=== PATIENT | female | born 1995 | race Caucasian/White ===

== ENCOUNTER 2018-10-04 12:22 | Inpatient (IN) | payer OTHER ==
[~2018-10-04] VITALS: Ht 167.6 cm; Wt 62.9 kg
[~2018-10-04 12:22] MED LIST: DOCU-144 PO; IBUP-1541 PO
[2018-10-04] MEDS ORDERED: FAMOTIDINE 20 MG INJ IV STA (12:55)
[2018-10-04] MEDS ORDERED: ONDANSETRON 4 MG INJ IV STA (12:55)
[2018-10-04] MEDS ORDERED: SOD CHLORIDE 0.9% 1,000 ML IV STA (12:55)
[2018-10-04] MEDS ORDERED: LORAZEPAM 2 MG INJ IV ONE (13:00)
[2018-10-04] MEDS ORDERED: ACETYLCYSTEINE INJ 9,000 MG in DEXTROSE 5% 200 ML IV STA (13:53)
[2018-10-04] MEDS ORDERED: ACETYLCYSTEINE INJ 3,000 MG in DEXTROSE 5% 500 ML IV SCH (14:00)
[2018-10-04] MEDS ORDERED: POTASSIUM CHLORIDE (SR) 20 MEQ TAB PO STA (14:04)
--- NOTE | 2018-10-04 14:08 | ERD ---
ER Documentation Chief Complaint Chief Complaint lower back pain, frequency discomfort with urination HPI 23-year-old female presents with some pelvic pain and nausea and urinary frequency. This is been over the last day after alcohol binge. She states that she has responded drinking alcohol to excess and denies chronic alcohol abuse although she states she has had several pints records of both hard liquor and beer over the last 1 to 2 weeks. Denies . She denies fevers, upper abdominal pain, cough, shortness of breath or chest pain. Patient was having nausea and lower abdominal pain and was taken approximately 12 Midol or acetaminophen since 1 PM this morning. Patient states she takes Midol regularly and she was taking for pain. She denies any suicidal thoughts or ideation. Denies other drugs. She describes her lower abdominal pain as 0 out of 10 in triage, right equal to left bilaterally and in the lower abdominal area. She complains of urinary frequency but no dysuria, discharge or bleeding. ROS All systems reviewed and are negative except as per history of present illness. Medications Home Meds No Active Prescriptions or Reported Meds Allergies Allergies: Coded Allergies: No Known Allergy (Unverified , 10/04/18) PMhx/Soc Medical and Surgical Hx: pt denies Medical Hx, pt denies Surgical Hx Hx Alcohol Use: No Hx Substance Use: No Hx Tobacco Use: No Smoking Status: Never smoker FmHx Family History: No diabetes, No coronary disease, No other Physical Exam Vitals Vital Signs Date Temp Pulse Resp B/P (MAP) Pulse Ox O2 O2 Flow FiO2 Time Delivery Rate 10/04/18 92 17 106/67 98 Room Air 15:17 (80) 10/04/18 98.9 101 20 131/68 96 12:24 (89) Physical Exam Const: No acute distress Head: Atraumatic Eyes: Normal Conjunctiva ENT: Normal External Ears, Nose and Mouth. Neck: Full range of motion. No meningismus. Resp: Clear to auscultation bilaterally Cardio: Regular rate and rhythm, no murmurs Abd: Soft, non tender, non distended. Normal bowel sounds Skin: No petechiae or rashes Back: No midline or flank tenderness Ext: No cyanosis, or edema Neur: Awake and alert Psych: Normal Mood and Affect Result Diagram: 10/04/18 1304 10/04/18 1303 Results 24 hrs Laboratory Tests Test 10/04/18 13:03 10/04/18 13:04 10/04/18 13:11 Sodium Level 139 mmol/L Potassium Level 3.2 mmol/L Chloride Level 105 mmol/L Carbon Dioxide Level 22 mmol/L Anion Gap 12 Blood Urea Nitrogen 12 mg/dl Creatinine 0.67 mg/dl Est Glomerular Filtrat > 60 mL/min Rate mL/min Glucose Level 123 mg/dl Calcium Level 9.6 mg/dl Total Bilirubin 0.7 mg/dl Direct Bilirubin 0.00 mg/dl Indirect Bilirubin 0.7 mg/dl Aspartate Amino Transf (AST/SGOT) 22 IU/L Alanine 15 IU/L Aminotransferase (ALT/SGPT) Alkaline Phosphatase 73 IU/L Total Protein 7.6 g/dl Albumin 4.5 g/dl Globulin 3.10 g/dl Albumin/Globulin Ratio 1.45 Lipase 74 U/L Acetaminophen Level 44.0 ug/ml White Blood Count 8.9 10^3/ul Red Blood Count 4.53 10^6/ul Hemoglobin 13.6 g/dl Hematocrit 40.6 % Mean Corpuscular Volume 89.6 fl Mean Corpuscular Hemoglobin 30.0 pg Mean Corpuscular 33.5 g/dl Hemoglobin Concent Red Cell Distribution Width 11.9 % Platelet Count 293 10^3/UL Mean Platelet Volume 10.1 fl Immature Granulocytes % 0.600 % Neutrophils % 75.6 % Lymphocytes % 18.1 % Monocytes % 5.4 % Eosinophils % 0.0 % Basophils % 0.3 % Nucleated Red Blood Cells % 0.0 /100WBC Immature Granulocytes # 0.050 10^3/ul Neutrophils # 6.7 10^3/ul Lymphocytes # 1.6 10^3/ul Monocytes # 0.5 10^3/ul Eosinophils # 0.0 10^3/ul Basophils # 0.0 10^3/ul Nucleated Red Blood Cells # 0.0 10^3/ul Prothrombin Time 13.3 Sec Prothrombin Time Ratio 1.0 INR International 1.00 Normalized Ratio Activated Partial Thromboplast 32.2 Sec Time Urine Color ELHAM Urine Clarity CLEAR Urine pH 6.0 Urine Specific [place] 1.017 Urine Ketones NEGATIVE mg/dL Urine Nitrite POSITIVE mg/dL Urine Bilirubin NEGATIVE mg/dL Urine Urobilinogen NEGATIVE mg/dL Urine Leukocyte Esterase NEGATIVE Ariana/ul Urine Microscopic RBC 3 /HPF Urine Microscopic WBC 4 /HPF Urine Squamous Epithelial Cells FEW /HPF Urine Hemoglobin NEGATIVE mg/dL Urine Glucose NEGATIVE mg/dL Urine Total Protein NEGATIVE mg/dl POC Beta HCG, Qualitative NEGATIVE Current Medications Medications Dose Sig/Gómze Start Time Status Last (Trade) Ordered Route PRN Stop Time Admin Dose Reason Admin Sodium 1,000 ml @ Q1H STAT 10/04/18 DC 10/04/18 Chloride 1,000 mls/hr IV 12:55 13:13 10/04/18 13:54 Ondansetron 4 mg ONCE STAT 10/04/18 DC 10/04/18 HCl (Zofran IV 12:55 13:12 Inj) 10/04/18 12:57 Famotidine 20 mg ONCE STAT 10/04/18 DC 10/04/18 (Pepcid Iv) IV 12:55 13:12 10/04/18 12:57 Lorazepam 1 mg ONCE ONCE 10/04/18 DC 10/04/18 (Ativan) IV 13:00 13:12 10/04/18 13:01 245 ml @ ONCE STAT 10/04/18 DC 10/04/18 Acetylcystein 200 mls/hr IV 13:53 15:06 e 9000 10/04/18 15:06 mg/Dextrose 515 ml @ ONCE IV 10/04/18 Acetylcystein 125 mls/hr 14:00 e 3000 10/04/18 17:59 mg/Dextrose 1,030 ml @ ONCE IV 10/04/18 Acetylcystein 62.5 mls/hr 20:00 e 6000 10/05/18 19:59 mg/Dextrose Potassium 40 meq ONCE STAT 10/04/18 DC 10/04/18 Chloride PO 14:04 14:48 (Klor-Con 20) 10/04/18 14:12 Cephalexin 500 mg ONCE ONCE 10/04/18 DC 10/04/18 (Keflex) PO 14:30 14:48 10/04/18 14:31 Ondansetron 4 mg ER BRIDGE 10/04/18 HCl (Zofran PRN IV 15:00 Inj) NAUSEA/VOMITI 10/05/18 14:59 NG 650 mg ER BRIDGE 10/04/18 Acetaminophen PRN PO 15:00 (Tylenol .MILD PAIN 10/05/18 14:59 Tab) 1-3 OR TEMP Procedures/MDM Patient presents with nausea and lower abdominal pain after alcohol binge over the last 1 to 2 weeks. She describes an unintentional overdose of Tylenol. Acetaminophen level was 44 approximately 13 hours after initial ingestion which would qualify for N-acetylcysteine per nomogram.. Patient was given 1 L normal saline IV, Zofran 4 mill grams IV. Urine shows nitrites and white blood cells with few epithelial cells. Patient was given Keflex 500 mg by mouth for findings suggestive of UTI. hCG negative. Patient has no evidence of transaminitis. Patient has potassium 3.2 and was given 40 mEq of potassium. Patient alert, talkative [id number] with a benign abdomen on serial exam and throughout the ED course. Patient currently shows no signs or symptoms of leukocytosis, rebound, and abdominal exam is reassuring. Departure Diagnosis: Primary Impression: Unintentional Tylenol overdose Additional Impressions: Cystitis Hypokalemia Alcohol abuse Condition: Serious CHI MOLINA MD Oct 04, 2018 14:08
[2018-10-04] MEDS ORDERED: CEPHALEXIN 500 MG CAP PO ONE (14:30)
[2018-10-04] MEDS ORDERED: ONDANSETRON 4 MG INJ IV PRN (15:00)
[2018-10-04] MEDS ORDERED: ACETAMINOPHEN 325 MG TAB PO PRN (15:00)
--- NOTE | 2018-10-04 16:47 | CONS ---
Assessment/Plan Assessment/Plan Assessment/Plan (Daily) Impression: 1. Unintentional Tylenol overdose 2. alcohol abuse Recommendations: 1. agree with stat acetylcysteine protocol for tylenol toxicity 2. alcohol cessation counseled 3. monitor daily INR and LFT 4. Dr. Morel to take over GI care for this patient tomorrow. Consultation Date/Type/Reason Admit Date/Time Date of Consultation: Oct 04, 2018 Type of Consult GI Reason for Consultation tylenol and alcohol toxicity Date/Time of Note DATE: 10/04/18 TIME: 16:42 Hx of Present Illness 23-year-old female who is admitted for likely tylenol toxicity. She presents with some pelvic pain and nausea and urinary frequency. This is been over the last day after alcohol binge for the last 2 wks. She states that she has responded drinking alcohol to excess as she goes out with her friends every night and having at least 5 alcohol beverages each setting. She denies fevers, upper abdominal pain, cough, shortness of breath or chest pain. Patient was having nausea and lower abdominal pain and was taken approximately 12 Midol or acetaminophen since 1 PM this morning. Patient states she takes Midol regularly and she was taking for pain. She denies any suicidal thoughts or ideation. Denies other drugs. No encephalopathy, no h/o jaundice, no known risk exposure to viral hepatitis. all point ros administered, pertinent positives and negative in HPI otherwise negative. Past Medical History Medical History: no pertinent history Home Meds No Active Prescriptions or Reported Meds Medications Current Medications Acetylcysteine 3000 mg/Dextrose 515 ml @ 125 mls/hr ONCE IV Last administered on 10/04/18at 16:10; Admin Dose 125 MLS/HR; Start 10/04/18 at 14:00; Stop 10/04/18 at 17:59 Acetylcysteine 6000 mg/Dextrose 1,030 ml @ 62.5 mls/hr ONCE IV ; Start 10/04/18 at 20:00; Stop 10/05/18 at 19:59 Ondansetron HCl (Zofran Inj) 4 mg ER BRIDGE PRN IV NAUSEA/VOMITING; Start 10/04/18 at 15:00; Stop 10/05/18 at 14:59 Acetaminophen (Tylenol Tab) 650 mg ER BRIDGE PRN PO .MILD PAIN 1-3 OR TEMP; Start 10/04/18 at 15:00; Stop 10/05/18 at 14:59 Sodium Chloride 1,000 ml @ 75 mls/hr [id number] IV ; Start 10/04/18 at 16:30 Levofloxacin/ Dextrose 100 ml @ 100 mls/hr Q24H IVPB ; Start 10/04/18 at 16:30 Pantoprazole (Protonix Tab) 40 mg DAILY PO ; Start 10/05/18 at 09:00 Allergies: Coded Allergies: No Known Allergy (Unverified , 10/04/18) Past Surgical History Past Surgical Hx: no surgical history Family History Significant Family History: no pertinent family hx Social History Alcohol Use: heavy Smoking Status: Never smoker Drug Use: none Exam/Review of Systems Exam Vitals Vital Signs Date Temp Pulse Resp B/P (MAP) Pulse Ox O2 O2 Flow FiO2 Time Delivery Rate 10/04/18 92 17 106/67 98 Room Air 15:17 (80) 10/04/18 98.9 12:24 Constitutional: alert, oriented, well developed Psych: no complaints, nl mood/affect Head: normocephalic, atraumatic Eyes: nl conjunctiva, EOMI, nl lids ENMT: nl external ears & nose, nl lips & teeth, nl nasal mucosa & septum Neck: supple, non-tender Respiratory: clear to auscultation, normal air movement Cardiovascular: regular rate and rhythm Gastrointestinal: soft, non-tender, bowel sounds Musculoskeletal: nl extremities to inspection Neurological: PULPING MACHINE OPERATOR II-XII intact, nl mental status, nl speech Results Result Diagram: 10/04/18 1304 10/04/18 1303 Results 24hrs Laboratory Tests Test 10/04/18 13:03 10/04/18 13:04 10/04/18 13:11 Sodium Level 139 Potassium Level 3.2 L Chloride Level 105 Carbon Dioxide Level 22 Anion Gap 12 Blood Urea Nitrogen 12 Creatinine 0.67 Est Glomerular Filtrat Rate mL/min > 60 Glucose Level 123 Calcium Level 9.6 Total Bilirubin 0.7 Direct Bilirubin 0.00 Indirect Bilirubin 0.7 Aspartate Amino Transf (AST/SGOT) 22 Alanine Aminotransferase (ALT/SGPT) 15 Alkaline Phosphatase 73 Total Protein 7.6 Albumin 4.5 Globulin 3.10 Albumin/Globulin Ratio 1.45 Lipase 74 Acetaminophen Level 44.0 H White Blood Count 8.9 Red Blood Count 4.53 Hemoglobin 13.6 Hematocrit 40.6 Mean Corpuscular Volume 89.6 Mean Corpuscular Hemoglobin 30.0 Mean Corpuscular Hemoglobin Concent 33.5 Red Cell Distribution Width 11.9 Platelet Count 293 Mean Platelet Volume 10.1 Immature Granulocytes % 0.600 H Neutrophils % 75.6 Lymphocytes % 18.1 Monocytes % 5.4 Eosinophils % 0.0 Basophils % 0.3 Nucleated Red Blood Cells % 0.0 Immature Granulocytes # 0.050 H Neutrophils # 6.7 Lymphocytes # 1.6 Monocytes # 0.5 Eosinophils # 0.0 Basophils # 0.0 Nucleated Red Blood Cells # 0.0 Prothrombin Time 13.3 Prothrombin Time Ratio 1.0 INR International Normalized Ratio 1.00 Activated Partial Thromboplast Time 32.2 Urine Color ELHAM Urine Clarity CLEAR Urine pH 6.0 Urine Specific [place] 1.017 Urine Ketones NEGATIVE Urine Nitrite POSITIVE A Urine Bilirubin NEGATIVE Urine Urobilinogen NEGATIVE Urine Leukocyte Esterase NEGATIVE Urine Microscopic RBC 3 Urine Microscopic WBC 4 Urine Squamous Epithelial Cells FEW Urine Hemoglobin NEGATIVE Urine Glucose NEGATIVE Urine Total Protein NEGATIVE POC Beta HCG, Qualitative NEGATIVE Medications Medication Current Medications Acetylcysteine 3000 mg/Dextrose 515 ml @ 125 mls/hr ONCE IV Last administered on 10/04/18at 16:10; Admin Dose 125 MLS/HR; Start 10/04/18 at 14:00; Stop 10/04/18 at 17:59 Acetylcysteine 6000 mg/Dextrose 1,030 ml @ 62.5 mls/hr ONCE IV ; Start 10/04/18 at 20:00; Stop 10/05/18 at 19:59 Ondansetron HCl (Zofran Inj) 4 mg ER BRIDGE PRN IV NAUSEA/VOMITING; Start 10/04/18 at 15:00; Stop 10/05/18 at 14:59 Acetaminophen (Tylenol Tab) 650 mg ER BRIDGE PRN PO .MILD PAIN 1-3 OR TEMP; Start 10/04/18 at 15:00; Stop 10/05/18 at 14:59 Sodium Chloride 1,000 ml @ 75 mls/hr [id number] IV ; Start 10/04/18 at 16:30 Levofloxacin/ Dextrose 100 ml @ 100 mls/hr Q24H IVPB ; Start 10/04/18 at 16:30 Pantoprazole (Protonix Tab) 40 mg DAILY PO ; Start 10/05/18 at 09:00 MAUREEN DE LA TORRE MD Oct 04, 2018 16:47
--- NOTE | 2018-10-04 16:55 | HP ---
MARY BAINS NP 10/04/18 1655: Date/Time of Note Date/Time of Note DATE: 10/04/18 TIME: 16:47 Assessment/Plan VTE Prophylaxis SCD contraindicated: low risk/ambulating Pharmacological prophylaxis: NA/contraindicated Pharm contraindication: low risk/ambulating Lines/Catheters IV Catheter Type (from Nrsg): Saline Lock Assessment/Plan Hospital Course 1. Acute acetaminophen toxicity. Pt took yesterday 10 tabs of Midol to decrease pain in left flank. Level is 44. 2. Flank pain for a week on and off. Possible pyelonephritis. US renal ordered 3. UTI, UA is shown pos. nitrite 4. history of ulcer in stomach, incomplete data 5. history of cardiology problem when was 6. Hx of rheumatic disease mother 7. Hypokalemia Assessment/Plan -Mucomyst treatment for tylenol level 44 -start IV fluids -telemetry service -dr Morel, GI to see -GI proph. protonix -DVT proph. SCD bilaterally -renal US -K supplement is given -H. pylori AG -urine culture -start IV Levaquin -level Tylenol per protocol Result Diagram: 10/04/18 1304 10/04/18 1303 Results 24hrs Laboratory Tests Test 10/04/18 13:03 10/04/18 13:04 10/04/18 13:11 Sodium Level 139 Potassium Level 3.2 L Chloride Level 105 Carbon Dioxide Level 22 Anion Gap 12 Blood Urea Nitrogen 12 Creatinine 0.67 Est Glomerular Filtrat Rate mL/min > 60 Glucose Level 123 Calcium Level 9.6 Total Bilirubin 0.7 Direct Bilirubin 0.00 Indirect Bilirubin 0.7 Aspartate Amino Transf (AST/SGOT) 22 Alanine Aminotransferase (ALT/SGPT) 15 Alkaline Phosphatase 73 Total Protein 7.6 Albumin 4.5 Globulin 3.10 Albumin/Globulin Ratio 1.45 Lipase 74 Acetaminophen Level 44.0 H White Blood Count 8.9 Red Blood Count 4.53 Hemoglobin 13.6 Hematocrit 40.6 Mean Corpuscular Volume 89.6 Mean Corpuscular Hemoglobin 30.0 Mean Corpuscular Hemoglobin Concent 33.5 Red Cell Distribution Width 11.9 Platelet Count 293 Mean Platelet Volume 10.1 Immature Granulocytes % 0.600 H Neutrophils % 75.6 Lymphocytes % 18.1 Monocytes % 5.4 Eosinophils % 0.0 Basophils % 0.3 Nucleated Red Blood Cells % 0.0 Immature Granulocytes # 0.050 H Neutrophils # 6.7 Lymphocytes # 1.6 Monocytes # 0.5 Eosinophils # 0.0 Basophils # 0.0 Nucleated Red Blood Cells # 0.0 Prothrombin Time 13.3 Prothrombin Time Ratio 1.0 INR International Normalized Ratio 1.00 Activated Partial Thromboplast Time 32.2 Urine Color ELHAM Urine Clarity CLEAR Urine pH 6.0 Urine Specific [place] 1.017 Urine Ketones NEGATIVE Urine Nitrite POSITIVE A Urine Bilirubin NEGATIVE Urine Urobilinogen NEGATIVE Urine Leukocyte Esterase NEGATIVE Urine Microscopic RBC 3 Urine Microscopic WBC 4 Urine Squamous Epithelial Cells FEW Urine Hemoglobin NEGATIVE Urine Glucose NEGATIVE Urine Total Protein NEGATIVE POC Beta HCG, Qualitative NEGATIVE HPI/ROS Admit Date/Time Admit Date/Time Hx of Present Illness This 23-year-old female presented to ER with left flank pain, nausea and urinary frequency. This pain is on and of for a week. pt report that she is often hold the urination and does not drink much water. She denies fevers, upper abdominal pain, cough, shortness of breath or chest pain. Patient was taken approximately 10-12 Midol or acetaminophen tablet (unknown dose) until now. Patient states she takes Midol regularly and she was taking for pain. She denies any suicidal thoughts or ideation. Surgical hx: medical Social hx : single , lives with parents ROS Constitutional: No fever, cough or chills. EYE: No eye disease. No visual problems. CARDIOVASCULAR: No chest pain. No tachycardia. No Palpitation. when she was born she was under care of cardiology, other details are unknown RESPIRATORY: No breathing problems. No COPD or disease of respiration. GASTROINTESTINAL: Some Nausea. No Vomiting. No constipation. . left flank pain on and off last week Endocrine: No excessive thirst, No polyuria, No hot intolerance. No cold intole simone. MUSCULO-SKELETAL: No bone or Joint disease. NEUROLOGICAL: Alert oriented in person, place, time and situation. No Headache, Confusion. No Seizures. No problem with balance. PMH/Family/Social Past Medical History Medical History: no pertinent history Medications Current Medications Acetylcysteine 3000 mg/Dextrose 515 ml @ 125 mls/hr ONCE IV Last administered on 10/04/18at 16:10; Admin Dose 125 MLS/HR; Start 10/04/18 at 14:00; Stop 10/04/18 at 17:59 Acetylcysteine 6000 mg/Dextrose 1,030 ml @ 62.5 mls/hr ONCE IV ; Start 10/04/18 at 20:00; Stop 10/05/18 at 19:59 Ondansetron HCl (Zofran Inj) 4 mg ER BRIDGE PRN IV NAUSEA/VOMITING; Start 10/04/18 at 15:00; Stop 10/05/18 at 14:59 Acetaminophen (Tylenol Tab) 650 mg ER BRIDGE PRN PO .MILD PAIN 1-3 OR TEMP; Start 10/04/18 at 15:00; Stop 10/05/18 at 14:59 Sodium Chloride 1,000 ml @ 75 mls/hr [id number] IV ; Start 10/04/18 at 16:30 Levofloxacin/ Dextrose 100 ml @ 100 mls/hr Q24H IVPB ; Start 10/04/18 at 16:30 Pantoprazole (Protonix Tab) 40 mg DAILY PO ; Start 10/05/18 at 09:00 Coded Allergies: No Known Allergy (Unverified , 10/04/18) Past Surgical History Past Surgical Hx: no surgical history Family History Significant Family History: no pertinent family hx, cancer (father), diabetes, hypertension (mother), other (rheumatic disease mother) Social History Alcohol Use: none Smoking Status: Never smoker Drug Use: none Exam/Review of Systems Vital Signs Vitals Vital Signs Date Temp Pulse Resp B/P (MAP) Pulse Ox O2 O2 Flow FiO2 Time Delivery Rate 10/04/18 92 17 106/67 98 Room Air 15:17 (80) 10/04/18 98.9 12:24 Exam Exam No acute distress, in ER. Eyes: anicteric, EOM's intact, no pallor Nose: no rhinorrhea Neck: supple, no thyromegaly, no carotid bruits Lungs: clear bilaterally, decreased. CVS: regular rate and rhythm, no murmurs Abdomen: soft, bowel sounds present, no hepatosplenomegally, no masses, no rebound or guarding. : pos CVA bilaterally tenderness more left Rectal: differed. External genitalia: no lesions. Extremities: no edema, DP pulses are palpable Neuro: alert and oriented x 3 Gait: normal Motor strength: 5+/5+ Sensory exam: normal Deep tendon reflexes: normal, Babisky reflexes are absent bilaterally Skin: no lesions JM YANG MD 10/04/18 1754: Assessment/Plan Assessment/Plan Assessment/Plan pt seen and examined with [facility] Tyenolol levesl daily, INR actely cysteine pyelo?? Result Diagram: 10/04/18 1304 10/04/18 1303 PMH/Family/Social Past Medical History Coded Allergies: No Known Allergy (Unverified , 10/04/18) MARY BAINS NP Oct 04, 2018 16:55 JM YANG MD Oct 04, 2018 17:54
[2018-10-04 18:33] VITALS: BP 133/85; PULSE 81; RESP 18
[2018-10-04 20:00] VITALS: BP 105/61; PULSE 114; PULSE 99; RESP 19; Ht 167.6 cm; Wt 62.9 kg
[2018-10-04] MEDS ORDERED: ACETYLCYSTEINE INJ 6,000 MG in DEXTROSE 5% 1,000 ML IV SCH (20:00)
[2018-10-04] MEDS: SOD CHLORIDE 0.9% 1,000 ML IV SCH (21:11)
[2018-10-04] MEDS: LEVOFLOXACIN 500MG/D5W (PMX) 100 ML IVPB SCH (21:29)
[2018-10-05] VITALS (7 sets, daily range): BP systolic 96–130; BP diastolic 54–75; PULSE 62–90; RESP 16–18
[2018-10-05] MEDS: SOD CHLORIDE 0.9% 1,000 ML IV SCH ×2 (05:32→19:10)
[2018-10-05] MEDS: KETOROLAC 15 MG INJ IV PRN ×3 (05:35→23:06)
--- NOTE | 2018-10-05 08:51 | CONS ---
Assessment/Plan Assessment/Plan Hospital Course (Demo Recall) 23 yo female presents for acetaminophen overdose after excessive alcohol consumption over a period of two weeks Pt c/o worsening abd pain. Denies nausea. 1. Unintentional acetaminophen overdose -acetylcysteine protocol 2. alcohol abuse -alcohol cessation 3. Nausea and vomiting with no evidence of GI bleeding -resolved 4. Abdominal pain -worse Plan: CT abd Stat lipase and amylase UA acetylcysteine protocol alcohol cessation education provided on acetaminophen and ibuprofen Monitor INR and LFTs Pending hep b serology Pt examined and plan of care d/w Dr. Morel Consultation Date/Type/Reason Admit Date/Time Oct 04, 2018 at 14:57 Initial Consult Date 10/04/18 Date/Time of Note DATE: 10/05/18 TIME: 08:33 Exam/Review of Systems Exam Vitals Vital Signs Date Temp Pulse Resp B/P (MAP) Pulse Ox O2 O2 Flow FiO2 Time Delivery Rate 10/05/18 98.4 72 16 96/54 (68) 96 07:19 10/04/18 Room Air 18:33 Intake and Output 10/04/18 10/04/18 10/05/18 1515:00 23:00 07:00 IntakeIntake Total 250 ml 1200 ml BalanceBalance 250 ml 1200 ml Constitutional: alert, oriented Psych: no complaints Head: normocephalic Eyes: PERRL Respiratory: clear to auscultation Cardiovascular: regular rate and rhythm Gastrointestinal: soft, tender (in all quadrants) Musculoskeletal: nl gait and stance Extremities: normal pulses Neurological: nl mental status Results Result Diagram: 10/05/18 0523 10/05/18 0524 Results 24hrs Laboratory Tests Test 10/04/18 13:03 10/04/18 13:04 10/04/18 13:11 10/05/18 00:41 Sodium Level 139 Potassium Level 3.2 L Chloride Level 105 Carbon Dioxide Level 22 Anion Gap 12 Blood Urea Nitrogen 12 Creatinine 0.67 Est Glomerular > 60 Filtrat Rate mL/min Glucose Level 123 Calcium Level 9.6 Total Bilirubin 0.7 Direct Bilirubin 0.00 Indirect Bilirubin 0.7 Aspartate Amino 22 Transf (AST/SGOT) Alanine 15 Aminotransferase (AL T/SGPT) Alkaline Phosphatase 73 Total Protein 7.6 Albumin 4.5 Globulin 3.10 Albumin/Globulin 1.45 Ratio Lipase 74 Acetaminophen Level 44.0 H < 10.0 L White Blood Count 8.9 Red Blood Count 4.53 Hemoglobin 13.6 Hematocrit 40.6 Mean Corpuscular 89.6 Volume Mean Corpuscular 30.0 Hemoglobin Mean Corpuscular 33.5 Hemoglobin Concent Red Cell 11.9 Distribution Width Platelet Count 293 Mean Platelet Volume 10.1 Immature 0.600 H Granulocytes % Neutrophils % 75.6 Lymphocytes % 18.1 Monocytes % 5.4 Eosinophils % 0.0 Basophils % 0.3 Nucleated Red Blood 0.0 Cells % Immature 0.050 H Granulocytes # Neutrophils # 6.7 Lymphocytes # 1.6 Monocytes # 0.5 Eosinophils # 0.0 Basophils # 0.0 Nucleated Red Blood 0.0 Cells # Prothrombin Time 13.3 Prothrombin Time 1.0 Ratio INR International 1.00 Normalized Ratio Activated 32.2 Partial Thromboplast Time Urine Color [place] Urine Clarity CLEAR Urine pH 6.0 Urine Specific 1.017 [place] Urine Ketones NEGATIVE Urine Nitrite POSITIVE A Urine Bilirubin NEGATIVE Urine Urobilinogen NEGATIVE Urine Leukocyte NEGATIVE Esterase Urine Microscopic 3 RBC Urine Microscopic 4 WBC Urine Squamous FEW Epithelial Cells Urine Hemoglobin NEGATIVE Urine Glucose NEGATIVE Urine Total Protein NEGATIVE Ethyl Alcohol Level < 10.0 H POC Beta HCG, NEGATIVE Qualitative Test 10/05/18 05:23 10/05/18 05:24 10/05/18 05:31 White Blood Count 8.4 Red Blood Count 4.49 Hemoglobin 13.6 Hematocrit 40.1 Mean Corpuscular 89.3 Volume Mean Corpuscular 30.3 Hemoglobin Mean Corpuscular 33.9 Hemoglobin Concent Red Cell 12.1 Distribution Width Platelet Count 281 Mean Platelet Volume 10.4 Immature 0.500 H Granulocytes % Neutrophils % 71.9 Lymphocytes % 20.4 Monocytes % 6.2 Eosinophils % 0.5 Basophils % 0.5 Nucleated Red Blood 0.0 Cells % Immature 0.040 H Granulocytes # Neutrophils # 6.1 Lymphocytes # 1.7 Monocytes # 0.5 Eosinophils # 0.0 Basophils # 0.0 Nucleated Red Blood 0.0 Cells # Prothrombin Time 14.2 Prothrombin Time 1.1 Ratio INR International 1.09 Normalized Ratio Hepatitis B Surface NEGATIVE Antigen Hepatitis B Core NEGATIVE Total Antibody Hepatitis C Antibody NEGATIVE Sodium Level 140 Potassium Level 3.6 Chloride Level 109 Carbon Dioxide Level 20 L Anion Gap 11 Blood Urea Nitrogen 4 L Creatinine 0.49 Est Glomerular > 60 Filtrat Rate mL/min Glucose Level 95 Calcium Level 9.7 Acetaminophen Level < 10.0 L Medications Medication Current Medications Acetylcysteine 6000 mg/Dextrose 1,030 ml @ 62.5 mls/hr ONCE IV Last administered on 10/04/18at 22:18; Admin Dose 62.5 MLS/HR; Start 10/04/18 at 20:00; Stop 10/05/18 at 19:59 Ondansetron HCl (Zofran Inj) 4 mg ER BRIDGE PRN IV NAUSEA/VOMITING Last administered on 10/04/18at 21:55; Admin Dose 4 MG; Start 10/04/18 at 15:00; Stop 10/05/18 at 14:59 Acetaminophen (Tylenol Tab) 650 mg ER BRIDGE PRN PO .MILD PAIN 1-3 OR TEMP Last administered on 10/04/18at 21:53; Admin Dose 650 MG; Start 10/04/18 at 15:00; Stop 10/05/18 at 14:59 Sodium Chloride 1,000 ml @ 75 mls/hr [id number] IV Last administered on 10/05/18at 05:32; Admin Dose 75 MLS/HR; Start 10/04/18 at 16:30 Levofloxacin/ Dextrose 100 ml @ 100 mls/hr Q24H IVPB Last administered on 10/04/18at 21:29; Admin Dose 100 MLS/HR; Start 10/04/18 at 16:30 Pantoprazole (Protonix Tab) 40 mg DAILY PO ; Start 10/05/18 at 09:00 Ketorolac Tromethamine (Toradol) 15 mg Q8H PRN IV PAIN Last administered on 10/05/18at 05:35; Admin Dose 15 MG; Start 10/05/18 at 04:30; Stop 10/08/18 at 04:29 MATEO ANGEL Oct 05, 2018 08:43
[2018-10-05] MEDS: PANTOPRAZOLE (EC) 40 MG TAB PO SCH (09:37)
--- NOTE | 2018-10-05 12:19 | PN ---
Date/Time of Note Date/Time of Note DATE: 10/05/18 TIME: 12:16 Assessment/Plan VTE Prophylaxis SCD applied (from Nsg): No SCD contraindicated: low risk/ambulating Pharmacological prophylaxis: NA/contraindicated Pharm contraindication: low risk/ambulating Lines/Catheters IV Catheter Type (from Nrsg): Peripheral IV Urinary Cath still in place: No Assessment/Plan Assessment/Plan 1 Acute acetaminophen toxicity. Pt took yesterday 10 tabs of Midol to decrease pain in left flank. Level is 44. Known levels have improved status post Mucomyst levels less than 10 2. Flank pain for a week on and off. Ultrasound negative 3. UTI, UA is shown pos. nitrite 4. history of ulcer in stomach, incomplete data 5. history of cardiology problem when was 6. Hx of rheumatic disease mother 7. Hypokalemia Assessment/Plan -Treat the course of N-acetylcysteine -Daily LFTs and INR -We will get CT of the abdomen and pelvis to evaluate the etiology of abdominal pain and flank pain -Continue with diet -business services vice president consult - NELLIE segovia for now Result Diagram: 10/05/18 0523 10/05/18 0524 Results 24hrs Laboratory Tests Test 10/04/18 13:03 10/04/18 13:04 10/04/18 13:11 10/05/18 00:41 Sodium Level 139 Potassium Level 3.2 L Chloride Level 105 Carbon Dioxide Level 22 Anion Gap 12 Blood Urea Nitrogen 12 Creatinine 0.67 Est Glomerular > 60 Filtrat Rate mL/min Glucose Level 123 Calcium Level 9.6 Total Bilirubin 0.7 Direct Bilirubin 0.00 Indirect Bilirubin 0.7 Aspartate Amino 22 Transf (AST/SGOT) Alanine 15 Aminotransferase (AL T/SGPT) Alkaline Phosphatase 73 Total Protein 7.6 Albumin 4.5 Globulin 3.10 Albumin/Globulin 1.45 Ratio Lipase 74 Acetaminophen Level 44.0 H < 10.0 L White Blood Count 8.9 Red Blood Count 4.53 Hemoglobin 13.6 Hematocrit 40.6 Mean Corpuscular 89.6 Volume Mean Corpuscular 30.0 Hemoglobin Mean Corpuscular 33.5 Hemoglobin Concent Red Cell 11.9 Distribution Width Platelet Count 293 Mean Platelet Volume 10.1 Immature 0.600 H Granulocytes % Neutrophils % 75.6 Lymphocytes % 18.1 Monocytes % 5.4 Eosinophils % 0.0 Basophils % 0.3 Nucleated Red Blood 0.0 Cells % Immature 0.050 H Granulocytes # Neutrophils # 6.7 Lymphocytes # 1.6 Monocytes # 0.5 Eosinophils # 0.0 Basophils # 0.0 Nucleated Red Blood 0.0 Cells # Prothrombin Time 13.3 Prothrombin Time 1.0 Ratio INR International 1.00 Normalized Ratio Activated 32.2 Partial Thromboplast Time Urine Color [place]AM Urine Clarity CLEAR Urine pH 6.0 Urine Specific 1.017 [place] Urine Ketones NEGATIVE Urine Nitrite POSITIVE A Urine Bilirubin NEGATIVE Urine Urobilinogen NEGATIVE Urine Leukocyte NEGATIVE Esterase Urine Microscopic 3 RBC Urine Microscopic 4 WBC Urine Squamous FEW Epithelial Cells Urine Hemoglobin NEGATIVE Urine Glucose NEGATIVE Urine Total Protein NEGATIVE Ethyl Alcohol Level < 10.0 H POC Beta HCG, NEGATIVE Qualitative Test 10/05/18 05:23 10/05/18 05:24 10/05/18 05:31 White Blood Count 8.4 Red Blood Count 4.49 Hemoglobin 13.6 Hematocrit 40.1 Mean Corpuscular 89.3 Volume Mean Corpuscular 30.3 Hemoglobin Mean Corpuscular 33.9 Hemoglobin Concent Red Cell 12.1 Distribution Width Platelet Count 281 Mean Platelet Volume 10.4 Immature 0.500 H Granulocytes % Neutrophils % 71.9 Lymphocytes % 20.4 Monocytes % 6.2 Eosinophils % 0.5 Basophils % 0.5 Nucleated Red Blood 0.0 Cells % Immature 0.040 H Granulocytes # Neutrophils # 6.1 Lymphocytes # 1.7 Monocytes # 0.5 Eosinophils # 0.0 Basophils # 0.0 Nucleated Red Blood 0.0 Cells # Prothrombin Time 14.2 Prothrombin Time 1.1 Ratio INR International 1.09 Normalized Ratio Hepatitis B Surface NEGATIVE Antigen Hepatitis B Core NEGATIVE Total Antibody Hepatitis C Antibody NEGATIVE Sodium Level 140 Potassium Level 3.6 Chloride Level 109 Carbon Dioxide Level 20 L Anion Gap 11 Blood Urea Nitrogen 4 L Creatinine 0.49 Est Glomerular > 60 Filtrat Rate mL/min Glucose Level 95 Calcium Level 9.7 Acetaminophen Level < 10.0 L Subjective 24 Hr Interval Summary Free Text/Dictation patient still has bilateral flank pain and occasional epigastric pain Acetaminophen levels less than 10 Exam/Review of Systems Exam Vitals Vital Signs Date Temp Pulse Resp B/P (MAP) Pulse Ox O2 O2 Flow FiO2 Time Delivery Rate 10/05/18 97.5 85 16 117/70 99 11:31 (86) 10/04/18 Room Air 18:33 Intake and Output 10/04/18 10/04/18 10/05/18 1515:00 23:00 07:00 IntakeIntake Total 250 ml 1200 ml BalanceBalance 250 ml 1200 ml Exam onstitutional: alert, oriented Psych: no complaints Head: normocephalic Eyes: PERRL Respiratory: clear to auscultation Cardiovascular: regular rate and rhythm Gastrointestinal: soft, tender (in all quadrants), TENDER to palpation in the bilateral flanks Musculoskeletal: nl gait and stance Extremities: normal pulses Neurological: nl mental status Results Results 24hrs Laboratory Tests Test 10/04/18 13:03 10/04/18 13:04 10/04/18 13:11 10/05/18 00:41 Sodium Level 139 Potassium Level 3.2 L Chloride Level 105 Carbon Dioxide Level 22 Anion Gap 12 Blood Urea Nitrogen 12 Creatinine 0.67 Est Glomerular > 60 Filtrat Rate mL/min Glucose Level 123 Calcium Level 9.6 Total Bilirubin 0.7 Direct Bilirubin 0.00 Indirect Bilirubin 0.7 Aspartate Amino 22 Transf (AST/SGOT) Alanine 15 Aminotransferase (AL T/SGPT) Alkaline Phosphatase 73 Total Protein 7.6 Albumin 4.5 Globulin 3.10 Albumin/Globulin 1.45 Ratio Lipase 74 Acetaminophen Level 44.0 H < 10.0 L White Blood Count 8.9 Red Blood Count 4.53 Hemoglobin 13.6 Hematocrit 40.6 Mean Corpuscular 89.6 Volume Mean Corpuscular 30.0 Hemoglobin Mean Corpuscular 33.5 Hemoglobin Concent Red Cell 11.9 Distribution Width Platelet Count 293 Mean Platelet Volume 10.1 Immature 0.600 H Granulocytes % Neutrophils % 75.6 Lymphocytes % 18.1 Monocytes % 5.4 Eosinophils % 0.0 Basophils % 0.3 Nucleated Red Blood 0.0 Cells % Immature 0.050 H Granulocytes # Neutrophils # 6.7 Lymphocytes # 1.6 Monocytes # 0.5 Eosinophils # 0.0 Basophils # 0.0 Nucleated Red Blood 0.0 Cells # Prothrombin Time 13.3 Prothrombin Time 1.0 Ratio INR International 1.00 Normalized Ratio Activated 32.2 Partial Thromboplast Time Urine Color [place] Urine Clarity CLEAR Urine pH 6.0 Urine Specific 1.017 [place] Urine Ketones NEGATIVE Urine Nitrite POSITIVE A Urine Bilirubin NEGATIVE Urine Urobilinogen NEGATIVE Urine Leukocyte NEGATIVE Esterase Urine Microscopic 3 RBC Urine Microscopic 4 WBC Urine Squamous FEW Epithelial Cells Urine Hemoglobin NEGATIVE Urine Glucose NEGATIVE Urine Total Protein NEGATIVE Ethyl Alcohol Level < 10.0 H POC Beta HCG, NEGATIVE Qualitative Test 10/05/18 05:23 10/05/18 05:24 10/05/18 05:31 White Blood Count 8.4 Red Blood Count 4.49 Hemoglobin 13.6 Hematocrit 40.1 Mean Corpuscular 89.3 Volume Mean Corpuscular 30.3 Hemoglobin Mean Corpuscular 33.9 Hemoglobin Concent Red Cell 12.1 Distribution Width Platelet Count 281 Mean Platelet Volume 10.4 Immature 0.500 H Granulocytes % Neutrophils % 71.9 Lymphocytes % 20.4 Monocytes % 6.2 Eosinophils % 0.5 Basophils % 0.5 Nucleated Red Blood 0.0 Cells % Immature 0.040 H Granulocytes # Neutrophils # 6.1 Lymphocytes # 1.7 Monocytes # 0.5 Eosinophils # 0.0 Basophils # 0.0 Nucleated Red Blood 0.0 Cells # Prothrombin Time 14.2 Prothrombin Time 1.1 Ratio INR International 1.09 Normalized Ratio Hepatitis B Surface NEGATIVE Antigen Hepatitis B Core NEGATIVE Total Antibody Hepatitis C Antibody NEGATIVE Sodium Level 140 Potassium Level 3.6 Chloride Level 109 Carbon Dioxide Level 20 L Anion Gap 11 Blood Urea Nitrogen 4 L Creatinine 0.49 Est Glomerular > 60 Filtrat Rate mL/min Glucose Level 95 Calcium Level 9.7 Acetaminophen Level < 10.0 L Medications Medication Current Medications Acetylcysteine 6000 mg/Dextrose 1,030 ml @ 62.5 mls/hr ONCE IV Last administered on 10/04/18at 22:18; Admin Dose 62.5 MLS/HR; Start 10/04/18 at 20:00; Stop 10/05/18 at 19:59 Ondansetron HCl (Zofran Inj) 4 mg ER BRIDGE PRN IV NAUSEA/VOMITING Last administered on 10/04/18at 21:55; Admin Dose 4 MG; Start 10/04/18 at 15:00; Stop 10/05/18 at 14:59 Acetaminophen (Tylenol Tab) 650 mg ER BRIDGE PRN PO .MILD PAIN 1-3 OR TEMP Last administered on 10/04/18at 21:53; Admin Dose 650 MG; Start 10/04/18 at 15:00; Stop 10/05/18 at 14:59 Sodium Chloride 1,000 ml @ 75 mls/hr [id number] IV Last administered on 10/05/18at 05:32; Admin Dose 75 MLS/HR; Start 10/04/18 at 16:30 Levofloxacin/ Dextrose 100 ml @ 100 mls/hr Q24H IVPB Last administered on 09/08 10/26at 21:29; Admin Dose 100 MLS/HR; Start 10/04/18 at 16:30 Pantoprazole (Protonix Tab) 40 mg DAILY PO Last administered on 10/05/18at 09:37; Admin Dose 40 MG; Start 10/05/18 at 09:00 Ketorolac Tromethamine (Toradol) 15 mg Q8H PRN IV PAIN Last administered on 10/05/18at 05:35; Admin Dose 15 MG; Start 10/05/18 at 04:30; Stop 10/08/18 at 04:29 JM YANG MD Oct 05, 2018 12:19
[2018-10-05] MEDS: LEVOFLOXACIN 500MG/D5W (PMX) 100 ML IVPB SCH (16:51)
[2018-10-06] VITALS (20 sets, daily range): BP systolic 94–144; BP diastolic 51–71; PULSE 84–114; RESP 11–27
[2018-10-06] MEDS: SOD CHLORIDE 0.9% 1,000 ML IV SCH ×2 (05:58→14:28)
[2018-10-06] MEDS: PANTOPRAZOLE (EC) 40 MG TAB PO SCH (09:00)
--- NOTE | 2018-10-06 09:15 | CONS ---
Assessment/Plan Assessment/Plan Hospital Course (Demo Recall) 23 yo female presents for acetaminophen overdose after excessive alcohol consumption over a period of two weeks Lipase and amylase wnl. Lfts wnl. INR 1.1. Hep B serology neg. Urine clean catch neg 1. Unintentional acetaminophen overdose -acetylcysteine protocol 2. alcohol abuse -alcohol cessation 3. Nausea and vomiting with no evidence of GI bleeding -resolved 4. Abdominal pain/flank pain (right) -does not feel like it s muscular - consistent with nausea 5. R/O appendicitis CT abd 10/05 1. No calcific renal calculus or hydronephrosis. 2. Borderline thickened appendix containing appendicoliths without periappendiceal fat stranding. If there is clinical concern for early acute appendicitis, follow-up pelvic CT in 24 hours could be obtained. Plan: Follow u pCT abd to evaluate for appendicitis. Monitor LFTs alcohol cessation education provided on acetaminophen and ibuprofen pain management Pt examined and plan of care d/w Dr. Morel Consultation Date/Type/Reason Admit Date/Time Oct 04, 2018 at 14:57 Initial Consult Date 10/04/18 Date/Time of Note DATE: 10/06/18 TIME: 09:09 24 HR Interval Summary Free Text/Dictation Lipase and amylase wnl. Lfts wnl. INR 1.1. Hep serology neg. Continues to have abdominal/rt flank pain with nausea now. No change to intensity of pain, . States she is not able to eat much. No bm. Exam/Review of Systems Exam Vitals Vital Signs Date Temp Pulse Resp B/P (MAP) Pulse Ox O2 O2 Flow FiO2 Time Delivery Rate 10/06/18 98.0 84 18 94/51 (65) 98 Room Air 07:29 Intake and Output 10/05/18 10/05/18 10/06/18 1515:00 23:00 07:00 IntakeIntake Total 370 ml 1050 ml 200 ml BalanceBalance 370 ml 1050 ml 200 ml Constitutional: alert, oriented Psych: no complaints Head: normocephalic Eyes: nl sclera, PERRL ENMT: mucosa pink and moist Respiratory: clear to auscultation Cardiovascular: regular rate and rhythm Gastrointestinal: soft, tender Genitourinary - Female: CVA tenderness Musculoskeletal: nl gait and stance Extremities: normal pulses Neurological: nl mental status Results Result Diagram: 10/05/18 0523 10/06/18 0439 Results 24hrs Laboratory Tests Test 10/05/18 14:54 10/06/18 04:39 Amylase Level 87 Lipase 89 Acetaminophen Level < 10.0 L Prothrombin Time 14.0 Prothrombin Time Ratio 1.1 INR International Normalized Ratio 1.07 Sodium Level 141 Potassium Level 3.9 Chloride Level 108 Carbon Dioxide Level 22 Anion Gap 11 Blood Urea Nitrogen 8 Creatinine 0.51 Est Glomerular Filtrat Rate mL/min > 60 Glucose Level 97 Calcium Level 9.6 Total Bilirubin 1.0 Direct Bilirubin 0.00 Indirect Bilirubin 1.0 Aspartate Amino Transf (AST/SGOT) 20 Alanine Aminotransferase (ALT/SGPT) 18 Alkaline Phosphatase 60 Total Protein 7.2 Albumin 4.3 Globulin 2.90 Albumin/Globulin Ratio 1.48 Medications Medication Current Medications Sodium Chloride 1,000 ml @ 75 mls/hr [id number] IV Last administered on 10/06/18at 05:58; Admin Dose 75 MLS/HR; Start 10/04/18 at 16:30 Levofloxacin/ Dextrose 100 ml @ 100 mls/hr Q24H IVPB Last administered on 10/05/18at 16:51; Admin Dose 100 MLS/HR; Start 10/04/18 at 16:30 Pantoprazole (Protonix Tab) 40 mg DAILY PO Last administered on 10/05/18at 09:37; Admin Dose 40 MG; Start 10/05/18 at 09:00 Ketorolac Tromethamine (Toradol) 15 mg Q8H PRN IV PAIN Last administered on 10/05/18at 23:06; Admin Dose 15 MG; Start 10/05/18 at 04:30; Stop 10/08/18 at 04:29 MATEO ANGEL Oct 06, 2018 09:15
[2018-10-06] MEDS ORDERED: metroNIDAZOLE 500 MG/NS (PMX) 100 ML IVPB SCH (10:30)
--- NOTE | 2018-10-06 10:30 | CONS ---
Assessment/Plan Assessment/Plan Hospital Course (Demo Recall) 1. Abdominal and right flank pain with possible appendicitis: -Antibiotics -appendectomy today -Pain management 2. Tylenol overdose unintentional status post Mucomyst treatment -As above -Judicious pain management 3. Abnormal UA -abx per sensitivity -frequent bladder emptying/cath care 4. History of gastritis: -PPI -Highly encourage alcohol use cessation 5. Alcohol abuse: -Highly encourage cessation 6. Extensive cardiac history -Cardiology follow-up Thank you. Patient seen and examined in collaboration with Dr. Gerardo Mackey. Consultation Date/Type/Reason Admit Date/Time Oct 04, 2018 at 14:57 Date of Consultation: Oct 06, 2018 Type of Consult Surgical Reason for Consultation Appendicitis, abdominal pain Requesting Provider: JM YANG MD Date/Time of Note DATE: 10/06/18 TIME: 10:11 Hx of Present Illness Latrice Mercedes is a 23-year-old woman with past medical history of gastritis, cardiac valve issues, possible endocarditis possible pericardial effusion status post pericardiocentesis who presented to the ED with complaints of right flank pain with radiation to right lower quadrant x1 week. Right flank pain is described as sharp and persistent. Associated symptoms include subjective fevers and chills, nausea and vomiting, nonbloody emesis, as well as constipation. She also presented with Tylenol overdose which she took attempting to alleviate her abdominal and flank pain. She denies labored carmen athing, congested cough, chest pain, palpitations, dysuria, seizure, rash. CT abdomen shows borderline thickened appendix containing appendicoliths without periappendiceal fat stranding. Laboratory findings were unremarkable. General surgery was asked to evaluate. 12 point review of systems was reviewed and is negative except for as stated in HPI Past Medical History gastritis, cardiac valve issues, possible endocarditis possible pericardial effusion status post pericardiocentesis Home Meds No Active Prescriptions or Reported Meds Medications Current Medications Sodium Chloride 1,000 ml @ 75 mls/hr [id number] IV Last administered on 10/06/18at 05:58; Admin Dose 75 MLS/HR; Start 10/04/18 at 16:30 Levofloxacin/ Dextrose 100 ml @ 100 mls/hr Q24H IVPB Last administered on 10/05/18at 16:51; Admin Dose 100 MLS/HR; Start 10/04/18 at 16:30 Pantoprazole (Protonix Tab) 40 mg DAILY PO Last administered on 10/05/18at 09:37; Admin Dose 40 MG; Start 10/05/18 at 09:00 Ketorolac Tromethamine (Toradol) 15 mg Q8H PRN IV PAIN Last administered on 10/05/18at 23:06; Admin Dose 15 MG; Start 10/05/18 at 04:30; Stop 10/08/18 at 04:29 Allergies: Coded Allergies: No Known Allergy (Unverified , 10/04/18) Past Surgical History As above Family History Significant Family History: other (cancer (father), diabetes, hypertension (mother), other (rheumatic disease mother)) Social History Alcohol Use: none Smoking Status: Never smoker Drug Use: none Exam/Review of Systems Exam Vitals Vital Signs Date Temp Pulse Resp B/P (MAP) Pulse Ox O2 O2 Flow FiO2 Time Delivery Rate 10/06/18 98.0 84 18 94/51 (65) 98 Room Air 07:29 Intake and Output 10/05/18 10/05/18 10/06/18 1515:00 23:00 07:00 IntakeIntake Total 370 ml 1050 ml 200 ml BalanceBalance 370 ml 1050 ml 200 ml Constitutional: alert, oriented Psych: nl mood/affect; No anxiety Head: normocephalic, atraumatic Eyes: nl conjunctiva, EOMI, nl lids, nl sclera ENMT: nl external ears & nose, nl lips & teeth, mucosa pink and moist Neck: supple, non-tender; No jvd Respiratory: normal air movement; No congested cough Cardiovascular: regular rate and rhythm, nl pulses Gastrointestinal: soft, tender (Right lower quadrant); No distended, No rebound or guarding Genitourinary - Female: nl external genitalia Musculoskeletal: nl extremities to inspection, nl gait and stance Extremities: normal pulses Neurological: nl mental status, nl speech, nl strength Skin: nl turgor; No rash or lesions Lymph: nl lymph nodes Results Result Diagram: 10/05/18 0523 10/06/18 0439 Results 24hrs Laboratory Tests Test 10/05/18 14:54 10/06/18 04:39 Amylase Level 87 Lipase 89 Acetaminophen Level < 10.0 L Prothrombin Time 14.0 Prothrombin Time Ratio 1.1 INR International Normalized Ratio 1.07 Sodium Level 141 Potassium Level 3.9 Chloride Level 108 Carbon Dioxide Level 22 Anion Gap 11 Blood Urea Nitrogen 8 Creatinine 0.51 Est Glomerular Filtrat Rate mL/min > 60 Glucose Level 97 Calcium Level 9.6 Total Bilirubin 1.0 Direct Bilirubin 0.00 Indirect Bilirubin 1.0 Aspartate Amino Transf (AST/SGOT) 20 Alanine Aminotransferase (ALT/SGPT) 18 Alkaline Phosphatase 60 Total Protein 7.2 Albumin 4.3 Globulin 2.90 Albumin/Globulin Ratio 1.48 Medications Medication Current Medications Sodium Chloride 1,000 ml @ 75 mls/hr [id number] IV Last administered on 10/06/18 05:58; Admin Dose 75 MLS/HR; Start 10/04/18 at 16:30 Levofloxacin/ Dextrose 100 ml @ 100 mls/hr Q24H IVPB Last administered on 10/05/18at 16:51; Admin Dose 100 MLS/HR; Start 10/04/18 at 16:30 Pantoprazole (Protonix Tab) 40 mg DAILY PO Last administered on 10/05/18at 09:37; Admin Dose 40 MG; Start 10/05/18 at 09:00 Ketorolac Tromethamine (Toradol) 15 mg Q8H PRN IV PAIN Last administered on 10/05/18 23:06; Admin Dose 15 MG; Start 10/05/18 at 04:30; Stop 10/08/18 at 04:29 KALIE BILLY NP Oct 06, 2018 10:25
[2018-10-06] MEDS ORDERED: BUPIVACAINE 0.25%/EPI (SDV) 30 ML INJ ONE (11:24)
[2018-10-06] MEDS ORDERED: LIDOCAINE 1% (MPF) 30 ML INJ ONE (11:24)
--- NOTE | 2018-10-06 11:30 | PN ---
Date/Time of Note Date/Time of Note DATE: 10/06/18 TIME: 11:24 Assessment/Plan VTE Prophylaxis Risk score (from Nsg)>0 risk: 0 SCD applied (from Ns): No SCD contraindicated: low risk/ambulating Pharmacological prophylaxis: NA/contraindicated Pharm contraindication: low risk/ambulating Lines/Catheters IV Catheter Type (from Nrsg): Peripheral IV Urinary Cath still in place: No Assessment/Plan Assessment/Plan 1 Acute acetaminophen toxicity. Pt took yesterday 10 tabs of Midol to decrease pain in left flank. Level is 44. Known levels have improved status post Mucomyst levels less than 10 2. Flank pain for a week on and off. Ultrasound negative CT A+P possible appendicitis with appendicoliths 3. UTI, UA is shown pos. nitrite 4. history of ulcer in stomach, incomplete data 5. history of cardiology problem when was she was told that 1 of her chambers were small 6. Hx of rheumatic disease mother 7. Hypokalemia Assessment/Plan -Surgery consult patient will go for appendectomy -We will get a chest x-ray EKG for clearance -Tylenol levels improved. Completed a course of N-acetylcysteine - NPO Result Diagram: 10/05/18 0523 10/06/18 0439 Results 24hrs Laboratory Tests Test 10/05/18 14:54 10/06/18 04:39 Amylase Level 87 Lipase 89 Acetaminophen Level < 10.0 L Prothrombin Time 14.0 Prothrombin Time Ratio 1.1 INR International Normalized Ratio 1.07 Sodium Level 141 Potassium Level 3.9 Chloride Level 108 Carbon Dioxide Level 22 Anion Gap 11 Blood Urea Nitrogen 8 Creatinine 0.51 Est Glomerular Filtrat Rate mL/min > 60 Glucose Level 97 Calcium Level 9.6 Total Bilirubin 1.0 Direct Bilirubin 0.00 Indirect Bilirubin 1.0 Aspartate Amino Transf (AST/SGOT) 20 Alanine Aminotransferase (ALT/SGPT) 18 Alkaline Phosphatase 60 Total Protein 7.2 Albumin 4.3 Globulin 2.90 Albumin/Globulin Ratio 1.48 Subjective 24 Hr Interval Summary Free Text/Dictation CT A+P reviewed shows appendicoliths Exam/Review of Systems Exam Vitals Vital Signs Date Temp Pulse Resp B/P (MAP) Pulse Ox O2 O2 Flow FiO2 Time Delivery Rate 10/06/18 98.0 84 18 94/51 (65) 98 Room Air 07:29 Intake and Output 10/05/18 10/05/18 10/06/18 1515:00 23:00 07:00 IntakeIntake Total 370 ml 1050 ml 200 ml BalanceBalance 370 ml 1050 ml 200 ml Exam nstitutional: alert, oriented Psych: no complaints Head: normocephalic Eyes: PERRL Respiratory: clear to auscultation Cardiovascular: regular rate and rhythm Gastrointestinal: soft, tender (in all quadrants), TENDER to palpation in the bilateral quadrants especially in RLQ Musculoskeletal: nl gait and stance Extremities: normal pulses Neurological: nl mental status Results Results 24hrs Laboratory Tests Test 10/05/18 14:54 10/06/18 04:39 Amylase Level 87 Lipase 89 Acetaminophen Level < 10.0 L Prothrombin Time 14.0 Prothrombin Time Ratio 1.1 INR International Normalized Ratio 1.07 Sodium Level 141 Potassium Level 3.9 Chloride Level 108 Carbon Dioxide Level 22 Anion Gap 11 Blood Urea Nitrogen 8 Creatinine 0.51 Est Glomerular Filtrat Rate mL/min > 60 Glucose Level 97 Calcium Level 9.6 Total Bilirubin 1.0 Direct Bilirubin 0.00 Indirect Bilirubin 1.0 Aspartate Amino Transf (AST/SGOT) 20 Alanine Aminotransferase (ALT/SGPT) 18 Alkaline Phosphatase 60 Total Protein 7.2 Albumin 4.3 Globulin 2.90 Albumin/Globulin Ratio 1.48 Medications Medication Current Medications Sodium Chloride 1,000 ml @ 75 mls/hr [id number] IV Last administered on 10/06/18at 05:58; Admin Dose 75 MLS/HR; Start 10/04/18 at 16:30 Levofloxacin/ Dextrose 100 ml @ 100 mls/hr Q24H IVPB Last administered on 10/05/18at 16:51; Admin Dose 100 MLS/HR; Start 10/04/18 at 16:30 Pantoprazole (Protonix Tab) 40 mg DAILY PO Last administered on 10/05/18at 09:37; Admin Dose 40 MG; Start 10/05/18 at 09:00 Ketorolac Tromethamine (Toradol) 15 mg Q8H PRN IV PAIN Last administered on 10/05/18at 23:06; Admin Dose 15 MG; Start 10/05/18 at 04:30; Stop 10/08/18 at 04:29 Metronidazole 100 ml @ 100 mls/hr Q8 IVPB ; Start 10/06/18 at 10:30 JM YANG MD 30, 2019 11:30
--- NOTE | 2018-10-06 12:40 | PREAC ---
Date/Time of Note Date/Time of Note DATE: 10/06/18 TIME: 12:38 Anesthesia Eval and Record Evaluation Time Pre-Procedure Interview DATE: 10/06/18 TIME: 12:38 Age 23 Sex female NPO: 8 hrs Preoperative diagnosis left flank pain Planned procedure laparoscopic appendectomy Past Medical History Past Medical History: Includes Hepatic: Alcohol abuse Recreational drugs: Cocaine (3 months ago) Surgery & Anesthesia Issues No known issue Meds Anticoagulation: No Beta Fifi within 24 hr: No Reason Beta Fifi not given: Pt. not on B-Fifi No Active Prescriptions or Reported Meds Current Medications Sodium Chloride 1,000 ml @ 75 mls/hr [id number] IV Last administered on 10/06/18at 05:58; Admin Dose 75 MLS/HR; Start 10/04/18 at 16:30 Levofloxacin/ Dextrose 100 ml @ 100 mls/hr Q24H IVPB Last administered on 10/05at 16:51; Admin Dose 100 MLS/HR; Start 10/04/18 at 16:30 Pantoprazole (Protonix Tab) 40 mg DAILY PO Last administered on 10/05/18at 09:37; Admin Dose 40 MG; Start 10/05/18 at 09:00 Ketorolac Tromethamine (Toradol) 15 mg Q8H PRN IV PAIN Last administered on 10/05/18at 23:06; Admin Dose 15 MG; Start 10/05/18 at 04:30; Stop 10/08/18 at 04:29 Metronidazole 100 ml @ 100 mls/hr Q8 IVPB Last administered on 10/06/18at 12:22; Admin Dose 100 MLS/HR; Start 10/06/18 at 10:30 Meds reviewed: Yes Allergies Coded Allergies: No Known Allergy (Unverified , 10/04/18) Allergies Reviewed: Yes Labs/Studies Labs Reviewed: Reviewed by anesthesiologist Result Diagram: 10/05/18 0523 10/06/18 0439 Laboratory Tests 10/06/18 04:39 test: Negative Pre-procedure Exam Last vitals Vital Signs Date Temp Pulse Resp B/P (MAP) Pulse Ox O2 O2 Flow FiO2 Time Delivery Rate 10/06/18 98.0 84 18 94/51 (65) 98 Room Air 07:29 Airway: Adequate mouth opening Mallampati: Mallampati I Teeth: Normal Lung: Normal Heart: Normal ASA Physical Status ASA physical status: 2 Emergency: None Planned Anesthetic General/MAC: ETT Pre-operative Attestations Prior to commencing anesthesia and surgery, the patient was re-evaluated, there was verification of: *The patient's identity *The results of appropriate recent lab work and preoperative vital signs *The above evaluation not changing prior to induction *Anesthetic plan, risk benefits, alternative and complications discussed with patient/family; questions answered; patient/family understands, accepts and wishes to proceed. AINSLEY OLIVA Oct 06, 2018 12:40
[2018-10-06] MEDS ORDERED: GLYCOPYRROLATE 0.4 MG INJ ONE ×2 (13:02→13:31)
[2018-10-06] MEDS ORDERED: NEOSTIGMINE 3 MG/3 ML SYRINGE ONE (13:02)
[2018-10-06] MEDS ORDERED: PROPOFOL 20 ML ONE (13:02)
[2018-10-06] MEDS ORDERED: SUCCINYLCHOLINE CHLORIDE 100 MG/5 ML SYG IV ONE (13:02)
[2018-10-06] MEDS ORDERED: ROCURONIUM 50 MG INJ ONE (13:02)
[2018-10-06] MEDS ORDERED: LIDOCAINE 2% (SDV) 5 ML INJ ONE (13:02)
[2018-10-06] MEDS ORDERED: MEPERIDINE 100 MG INJ ONE (13:02)
[2018-10-06] MEDS ORDERED: CEFAZOLIN 1 GM INJ ONE (13:17)
[2018-10-06] MEDS ORDERED: METOCLOPRAMIDE 10 MG INJ ONE (13:31)
[2018-10-06] MEDS ORDERED: ONDANSETRON 4 MG INJ ONE (13:31)
[2018-10-06] MEDS ORDERED: MIDAZOLAM 1 MG/ML 2 ML INJ IV PRN (14:00)
[2018-10-06] MEDS ORDERED: HYDROmorphONE 0.5 MG/0.5 ML SYG IV PRN (14:00)
[2018-10-06] MEDS ORDERED: METOCLOPRAMIDE 10 MG INJ IV PRN (14:00)
[2018-10-06] MEDS ORDERED: MEPERIDINE 25 MG INJ IV PRN (14:00)
[2018-10-06] MEDS ORDERED: ONDANSETRON 4 MG INJ IV PRN (14:00)
[2018-10-06] MEDS ORDERED: HYDROmorphONE 1 MG/5 ML IV SYRINGE IV PRN ×3 (14:00)
[2018-10-06] MEDS ORDERED: DIPHENHYDRAMINE 50 MG INJ IV PRN (14:00)
[2018-10-06] MEDS ORDERED: ACETAMINOPHEN 500 MG TAB PO PRN (14:00)
[2018-10-06] MEDS ORDERED: FENTAnyl 50 MCG/ML VIAL IV PRN ×3 (14:00)
--- NOTE | 2018-10-06 14:05 | OPR ---
Date/Time of Note Date/Time of Note DATE: 10/06/18 TIME: 14:01 Operative Report Free Text/Dictation Preoperative Diagnosis 1. Possible acute versus subacute early appendicitis 2. Appendicolith 3. Abdominal pain x2-week Postoperative Diagnosis 1. Acute versus subacute early appendicitis 2. Appendicolith 3. Abdominal pain x2 weeks Operation Performed 1. Laparoscopic appendectomy 2. Local anesthetic injection, [id number] 3. Laparoscopic guided bilateral transversus abdominis plane block Surgeon: SUMEET CARDOZA MD Anesthesia: general (Plus local plus regional) Anesthesiologist: Shruthi Darden MD Estimated Blood Loss: <10 ml's Specimens: Appendix Tubes/Drains None Complications: None Pt Condition Post Procedure: stable Disposition: PACU Indications: Per consult note. Risks include but are not limited to bleeding, infection, abscess, seroma, leak, damage to intestines or any intra-abdominal/intrapelvic structures, hernia formation, chronic pain, need for re-operations or further surgeries, OK, stroke, PE, DVT, pneumonia, organ failures, or even . Procedure Note: Patient was brought into the operating room, placed supine on the operating table, SCDs were placed, left arm was tucked, all pressure points were well- padded, preoperative antibiotics administered, and after induction of anesthesia, patient was prepped and draped in usual sterile fashion, and timeout was performed. Incision was made supraumbilically and the Veress needle was safely place into the abdomen. After negative sip test, abdomen was insufflated to 15 mmHg with CO2. At this point Veress was removed and the 5 mm blunt trocar was placed into the abdomen. Laparoscopy was performed and no injuries were identified using a 5 mm 30 scope. Under direct visualization another 5 mm port was placed and left lower quadrant and 12 mm port and suprapubic region avoiding the bladder. All incision sites were injected with quarter percent Marcaine with 1% lidocaine with epi. Bilateral transversus abdominis plane block was performed under laparoscopic visualization to aid with pain control intra-and postoperatively. Patient was placed in Trendelenburg and right side up. Gallbladder looks healthy. Liver looks healthy. Bowel without pathology superficially. Early possible direct bilateral inguinal hernias starting. No pelvic pathology. The appendix was found to be minimally inflamed without evidence of perforation. The appendix was somewhat thickened. There is appendicolith.. The base was transected using Endo RICHARD white load automatic 35 mm stapler just on the cecum. The heide were fired fully. The mesoappendix was transected with another white load stapler. Hemostasis was fully obtained. The appendix was placed in an Endo Catch bag and removed through the suprapubic port site. That fascia was closed with Endo Close and 0 Vicryl in a [id number]-lo-wrwno manner avoiding the bladder. Ports and CO2 were removed under direct visualization, wounds were fully irrigated, and skin was closed in subcuticular fashion using 4-0 Monocryl. Dermabond was applied. All counts were correct and the end of the operation 2. Patient was extubated and transferred to recovery room in stable condition. SUMEET CARDOZA MD Oct 06, 2018 14:05
--- NOTE | 2018-10-06 14:40 | PAC ---
Date/Time of Note Date/Time of Note DATE: 10/06/18 TIME: 14:39 Post-Anesthesia Notes Post-Anesthesia Note Last documented vital signs Vital Signs Date Temp Pulse Resp B/P (MAP) Pulse Ox O2 O2 Flow FiO2 Time Delivery Rate 10/06/18 98.0 84 18 94/51 (65) 98 Room Air 07:29 Activity: WNL Respiratory function: WNL Cardiovascular function: WNL Mental status: Baseline Pain reasonably controlled: Yes Hydration appropriate: Yes Nausea/Vomiting absent: Yes Comments BT: 98.5 KIKO MCINTOSH MD Oct 06, 2018 14:40
[2018-10-06] MEDS: HYDROCODONE/APAP (5/325) TAB PO PRN (19:29)
[2018-10-06] MEDS: KETOROLAC 15 MG INJ IV PRN (22:36)
[2018-10-07 00:36] VITALS: BP 112/74; PULSE 80; RESP 18
[2018-10-07] MEDS: SOD CHLORIDE 0.9% 1,000 ML IV SCH (02:01)
[2018-10-07] MEDS: HYDROCODONE/APAP (5/325) TAB PO PRN ×2 (07:38→14:08)
[2018-10-07 07:46] VITALS: BP 102/62; PULSE 94; RESP 18
[2018-10-07] MEDS ORDERED: SENNA TAB PO PRN (09:04)
[2018-10-07] MEDS ORDERED: MAGNESIUM HYDROXIDE 30ML CUP PO PRN (09:30)
[2018-10-07] MEDS: PANTOPRAZOLE (EC) 40 MG TAB PO SCH (09:50)
[2018-10-07] MEDS ORDERED: ONDANSETRON 4 MG INJ IV PRN (10:45)
--- NOTE | 2018-10-07 10:49 | PN ---
Date/Time of Note Date/Time of Note DATE: 10/07/18 TIME: 10:44 Assessment/Plan Lines/Catheters IV Catheter Type (from Nrsg): Peripheral IV Hoang in Place (from Nrsg): No Assessment/Plan Chief Complaint/Hosp Course 1. Abdominal and right flank pain with acute versus subacute appendicitis: -IS -ambulate -ice pack to abdominal wall -advance diet as tolerated -Pain management -DC okay from surgical standpoint once tolerating diet and with bowel movement. Follow-up in office in 1 to 2 weeks. 2. Tylenol overdose unintentional status post Mucomyst treatment -As above -Judicious pain management 3. Abnormal UA -abx per sensitivity -frequent bladder emptying/cath care 4. History of gastritis: -PPI -Highly encourage alcohol use cessation 5. Alcohol abuse: -Highly encourage cessation 6. Extensive cardiac history -Cardiology follow-up 7. Constipation -bowel regimen Thank you. Patient seen and examined in collaboration with Dr. Gerardo Mackey. Subjective 24 Hr Interval Summary Feels well. Some abdominal discomfort but original right-sided flank pain is resolved. No BM. Some nausea. No fevers, chills, sob, congested cough, cp, palpitations, torres, dizziness, vomiting, diarrhea, dysuria. Exam/Review of Systems Vital Signs Vitals Vital Signs Date Temp Pulse Resp B/P (MAP) Pulse Ox O2 O2 Flow FiO2 Time Delivery Rate 10/07/18 97.6 94 18 102/62 98 Room Air 07:46 (75) Intake and Output 10/06/18 10/06/18 10/07/18 1515:00 23:00 07:00 IntakeIntake Total 600 ml 525 ml 825 ml OutputOutput Total 305 ml BalanceBalance 295 ml 525 ml 825 ml Exam Free Text/Dictation Constitutional: alert, oriented Psych: nl mood/affect; No anxiety Head: normocephalic, atraumatic Eyes: nl conjunctiva, EOMI, nl lids, nl sclera ENMT: nl external ears & nose, nl lips & teeth, mucosa pink and moist Neck: supple, non-tender; No jvd Respiratory: normal air movement; No congested cough Cardiovascular: regular rate and rhythm, nl pulses Gastrointestinal: soft, tender (venecia-incisional, incision sites dry without drainage/discoloration/bruising); No distended, No rebound or guarding Genitourinary - Female: nl external genitalia Musculoskeletal: nl extremities to inspection, nl gait and stance Extremities: normal pulses Neurological: nl mental status, nl speech, nl strength Skin: nl turgor; No rash or lesions Lymph: nl lymph nodes Results Result Diagram: 10/05/18 0523 10/06/18 0439 KALIE BILLY NP Oct 07, 2018 10:48
[2018-10-07] MEDS ORDERED: BISACODYL 10 MG SUPP PR PRN (11:00)
[2018-10-07 14:11] VITALS: BP 109/67; PULSE 96; RESP 16
--- NOTE | 2018-10-07 14:17 | PN ---
Date/Time of Note Date/Time of Note DATE: 10/07/18 TIME: 14:12 Assessment/Plan VTE Prophylaxis Risk score (from Ns)>0 risk: 2 SCD applied (from Ns): Yes Pharmacological prophylaxis: NA/contraindicated Pharm contraindication: low risk/ambulating Lines/Catheters IV Catheter Type (from Nrsg): Peripheral IV Urinary Cath still in place: No Assessment/Plan Assessment/Plan Assessment/Plan 1 Acute acetaminophen toxicity. Pt took yesterday 10 tabs of Midol to decrease pain in left flank. Level is 44. Known levels have improved status post Mucomyst levels less than 10 2. Flank pain for a week on and off. Ultrasound negative CT A+P possible appendicitis with appendicoliths sp lap appendectomy on 10/06 3. UTI, UA is shown pos. nitrite 4. history of ulcer in stomach, incomplete data 5. history of cardiology problem when was she was told that 1 of her ch ambers were small 6. Hx of rheumatic disease mother 7. Hypokalemia Assessment/Plan -- sp appendectomy yesterday, some pain at surgcial site expected - ibuprofen, cannotgive norco/tyenolol due to tyenolol toxicity ho - will dc home today , spoke to surgery does not necessary need to have bm before dc Result Diagram: Result Diagram: 10/05/18 0523 10/06/18 0439 Subjective 24 Hr Interval Summary Free Text/Dictation Pain in the surgical site which is expected Exam/Review of Systems Exam Vitals Vital Signs Date Temp Pulse Resp B/P (MAP) Pulse Ox O2 O2 Flow FiO2 Time Delivery Rate 10/07/18 97.6 94 18 102/62 98 Room Air 07:46 (75) Intake and Output 10/06/18 10/06/18 10/07/18 1515:00 23:00 07:00 IntakeIntake Total 600 ml 525 ml 825 ml OutputOutput Total 305 ml BalanceBalance 295 ml 525 ml 825 ml Exam stitutional: alert, oriented Psych: no complaints Head: normocephalic Eyes: PERRL Respiratory: clear to auscultation Cardiovascular: regular rate and rhythm Gastrointestinal: well healed scars Musculoskeletal: nl gait and stance Extremities: normal pulses Neurological: nl mental status Medications Medication Current Medications Sodium Chloride 1,000 ml @ 75 mls/hr [id number] IV Last administered on 10/07/18 02:01; Admin Dose 75 MLS/HR; Start 10/04/18 at 16:30 Pantoprazole (Protonix Tab) 40 mg DAILY PO Last administered on 10/07/18at 09:50; Admin Dose 40 MG; Start 10/05/18 at 09:00 Ketorolac Tromethamine (Toradol) 15 mg Q8H PRN IV PAIN Last administered on 10/06/18at 22:36; Admin Dose 15 MG; Start 10/05/18 at 04:30; Stop 10/08/18 at 04:29 Acetaminophen (Tylenol Tab) 500 mg Q6H PRN PO MILD PAIN(1-3)OR ELEVATED TEMP; Start 10/06/18 at 14:00 Acetaminophen/ Hydrocodone Bitart ([place] (5/325)) 1 tab Q6H PRN PO MODERATE PAIN LEVEL 4-6 Last administered on 10/07/18at 14:08; Admin Dose 1 TAB; Start 10/06/18 at 14:00 Hydromorphone HCl (Dilaudid) 0.5 mg Q3H PRN IV SEVERE PAIN LEVEL 7-10; Start 10/06/18 at 14:00 Senna (Senokot) 1 tab BID PRN PO CONSTIPATION; Start 10/07/18 at 09:04 Magnesium Hydroxide (Milk Of Mag) 30 ml DAILY PRN PO CONSTIPATION Last administ ered on 10/07/18at 12:59; Admin Dose 30 ML; Start 10/07/18 at 09:30 Ondansetron HCl (Zofran Inj) 4 mg Q6H PRN IV NAUSEA AND/OR VOMITING; Start 10/07/18 at 10:45 Bisacodyl (Dulcolax Supp) 10 mg DAILY PRN [place] CONSTIPATION; Start 10/07/18 at 11:00 JM YANG MD Oct 07, 2018 14:17
--- NOTE | 2018-10-07 14:19 | PDOCDIS ---
Discharge Instructions DIAGNOSIS Discharge Diagnosis lap appendectomy tyenolol toxicity CONDITION [id number] Patient Condition: Vuhiz5r Fair HOME CARE INSTRUCTIONS: [id number] Diet Instructions: [id number] Regular ACTIVITY: [id number] Activity Restrictions: [id number] Slowly Increase Activity Rest between Activity Avoid heavy lifting No Sexual Activity Do not Drive Do not operate Machinery Do not operate Power Tool Avoid Heavy Housework [id number] Bathing Restrictions: [id number] Shower FOLLOW UP/APPOINTMENTS Follow-up Plan fu PCP in 1 -2 weeks fu dR Mackey in 1-2 weeks keep surgical site clean no tyenolol /norcofor pain JM YANG MD Oct 07, 2018 14:19
[2018-10-07] MEDS ORDERED: IBUPROFEN 400 MG TAB PO PRN (15:00)
--- NOTE | 2018-10-07 18:03 | CONS ---
Assessment/Plan Assessment/Plan Assessment/Plan (Daily) Assessment/Plan Hospital Course (Demo Recall) 23 yo female presents for acetaminophen overdose after excessive alcohol consumption over a period of two weeks Lipase and amylase wnl. Lfts wnl. INR 1.1. Hep B serology neg. Urine clean catch neg 1. Unintentional acetaminophen overdose -acetylcysteine protocol 2. alcohol abuse -alcohol cessation 3. Nausea and vomiting with no evidence of GI bleeding -resolved 4. Abdominal pain/flank pain (right) -does not feel like it s muscular - consistent with nausea 5. That is post appendicectomy. Patient is ambulating Plan Continue postoperative care Consultation Date/Type/Reason Admit Date/Time Oct 04, 2018 at 14:57 Initial Consult Date 10/06/18 Requesting Provider: JM YANG MD Date/Time of Note DATE: 10/07/18 TIME: 18:03 24 HR Interval Summary Constitutional: improved Exam/Review of Systems Exam Vitals Vital Signs Date Temp Pulse Resp B/P (MAP) Pulse Ox O2 O2 Flow FiO2 Time Delivery Rate 10/07/18 98.5 96 16 109/67 100 Room Air 14:11 (81) Intake and Output 10/06/18 10/06/18 10/07/18 1515:00 23:00 07:00 IntakeIntake Total 600 ml 525 ml 825 ml OutputOutput Total 305 ml BalanceBalance 295 ml 525 ml 825 ml Constitutional: alert, oriented, well developed Psych: no complaints, nl mood/affect Head: normocephalic, atraumatic Eyes: nl conjunctiva, EOMI, nl lids, nl sclera, PERRL ENMT: nl external ears & nose, nl lips & teeth, nl nasal mucosa & septum Neck: supple, non-tender Respiratory: clear to auscultation, normal air movement Cardiovascular: regular rate and rhythm, nl pulses Gastrointestinal: soft, nl liver, spleen, non-tender Musculoskeletal: nl extremities to inspection, nl gait and stance Extremities: normal pulses Neurological: GIANT TIRE REPAIRER II-XII intact, nl mental status, nl speech, nl strength Skin: nl turgor; No rash or lesions Lymph: nl lymph nodes Results Result Diagram: 10/05/18 0523 10/06/18 0439 Medications Medication Current Medications Pantoprazole (Protonix Tab) 40 mg DAILY PO Last administered on 10/07/18at 09:50; Admin Dose 40 MG; Start 10/05/18 at 09:00 Senna (Senokot) 1 tab BID PRN PO CONSTIPATION; Start 10/07/18 at 09:04 Magnesium Hydroxide (Milk Of Mag) 30 ml DAILY PRN PO CONSTIPATION Last administered on 10/07/18at 12:59; Admin Dose 30 ML; Start 10/07/18 at 09:30 Ondansetron HCl (Zofran Inj) 4 mg Q6H PRN IV NAUSEA AND/OR VOMITING; Start 10/07/18 at 10:45 Bisacodyl (Dulcolax Supp) 10 mg DAILY PRN [place] CONSTIPATION; Start 10/07/18 at 11:00 Ibuprofen (Motrin) 400 mg Q6H PRN PO MILD PAIN(1-3) OR TEMP>38C Last administered on 10/07/18at 15:34; Admin Dose 400 MG; Start 10/07/18 at 15:00 RAFAL VALDEZ MD Oct 07, 2018 18:03
--- NOTE | 2018-10-08 20:55 | RADRPT ---
Vent Rate: 99 bpm RR Interval: 608 msec IA Interval: 163 msec QRS Duration: 87 msec QT Interval: 367 msec QTC Interval: 471 msec P-R-T [place]: 63 - 66 - 46 degrees Sinus rhythm...normal P axis, V-rate 50- 99 Electronically Signed By: Aly Keane
--- NOTE | 2018-10-15 20:33 | DS ---
DATE OF ADMISSION: 10/04/2018 DATE OF DISCHARGE: 10/07/2018 HISTORY OF PRESENTING ILLNESS AND HOSPITAL COURSE: This is a 23-year-old female who presented to the emergency department complaining of left flank pain, nausea, vomiting and abdominal pain. The patie nt said that she is often holding urination and did not drink that much water. Denied any fevers, co ugh, shortness of breath, chest pain. The patient said that she was taking 10 to 12 doses of ____ be cause of her pain. On admission, the patient had a temperature 98.9, pulse 92, respirations 17, bloo d pressure 106/67. Tylenol levels were checked that were 44. The patient had LFTs that were within normal limit. INR was 1.0. The patient was started on N-acetylcysteine for Tylenol overdose. Next day, Tylenol levels were less than 10. GI was consulted and the recommendations were followed. The patient also had a renal ultrasound which was negative; however, the patient also had a CT of the abd omen and pelvis due to persistent abdominal pain and was noted to have borderline thickened appendix containing appendicolith without periappendiceal fat stranding, concern for early acute appendicitis. The patient was seen by surgery consultation with Dr. Mackey and had appendectomy performed due to subacute appendicitis. The patient's condition was improving. The patient was started on regular d iet, which she was tolerating it currently. LFTs were normal. White count was 8.4. The patient was tolerating diet and stable to be discharged home. FINAL DISCHARGE DIAGNOSES: 1. Acute acetaminophen toxicity taken due to abdominal pain status post N-acetylcysteine. Levels ca me down to 10. 2. Flank pain for week on and off, right-sided with subacute appendicitis status post laparoscopic a ppendectomy on 10/06/2018. 3. Urinary tract infection, positive nitrite. 4. History of ulcer in the stomach. 5. History of cardiology problem. 6. History of rheumatic disease ____. 7. Hypokalemia, resolved. DISCHARGE CONDITION: Stable. DISCHARGE DIET: Regular diet. DISCHARGE MEDICATIONS: 1. Ibuprofen 400 mg p.o. q.6 p.r.n. pain. 2. Colace p.r.n. constipation. The patient was already treated for antibiotic course for UTI and urine culture had shown less than 1 0,000 organisms. The patient was instructed to follow up with PCP in 1 to 2 weeks and follow up with Dr. Mackey 1 to 2 weeks. Dictated By: JM NESBITT/NORBERT Conf#: [id number] DID#: [id number] CC: RAFAL VALDEZ MD;*EndCC*
== END 2018-10-07 19:10 | disposition home or self-care (01) | DRG 908 ==
LOC: FTE 12:22 → TEL 14:57 → MS1 10-05 15:12
PROVIDERS: ADMIT Internal Medicine; ATTEND Internal Medicine
PROC: 0DTJ4ZZ Resection of Appendix, Percutaneous Endoscopic Approach (ICD-10-PCS; principal; 2018-10-06 12:00)
DX: T39.1X1A Poisoning by 4-Aminophenol derivatives, accidental (unintentional), initial encounter (principal); N39.0 Urinary tract infection, site not specified; K35.80 Unspecified acute appendicitis; E87.6 Hypokalemia; F10.10 Alcohol abuse, uncomplicated; K38.1 Appendicular concretions; K59.00 Constipation, unspecified
CPT/HCPCS: 36415; 71045; 74176; 76775; 80048; 80053; 80076; 80307; 81001; 81025; 82150; 83690; 85025; 85610; 85730; 86704; 86709; 86803; 87086; 87340; 88304; 93005; 96374; 96375; J0132; J0690; J1885; J1956; J2060; J2175; J2405; J2710; J2765; J3010; J7030; J7060; J7070